=== PATIENT | female | born 1960 | race American Indian/Alaskan Native ===

== ENCOUNTER 2021-04-17 11:59 | Emergency (ER) | payer BC ==
--- NOTE | 2021-04-17 12:47 | Emergency Department Report ---
ED General Adult HPI - General Chief complaint: Medical Clearance Stated complaint: LOW POT/SODIUM Time Seen by Provider: 04/17/21 12:37 Source: patient Mode of arrival: Ambulatory Limitations: No Limitations - History of Present Illness Initial comments: 60-year-old female with a past medical history of hypertension presents to the hospital due to abnormal outpatient labs. Patient had routine labs drawn by her doctors office yesterday. She was sent due to sodium of 121 and potassium 3.0. Patient is asymptomatic and does not endorse any nausea, vomiting, or weakness. Patient's treating provider Syd Camilo nurse practitioner affiliated with [facility] Patient's current medications include amlodipine 5 mg Metoprolol 25 mg Rosuvastatin 20 mg Hydrochlorothiazide 12.5 mg benazepril 20 - Related Data Home Medications Medication Instructions Recorded Confirmed Last Taken Benazepril HCl [Lotensin] 20 mg PO QDAY 04/17/21 04/17/21 04/17/21 Metoprolol [Lopressor] 25 mg PO QDAY 04/17/21 04/17/21 04/17/21 Rosuvastatin Calcium 20 mg PO QDAY 04/17/21 04/17/21 04/17/21 amLODIPine [Norvasc] 5 mg PO DAILY 04/17/21 04/17/21 04/17/21 hydroCHLOROthiazide [Hctz] 12.5 mg PO QDAY 04/17/21 04/17/21 04/17/21 Previous Rx's Medication Instructions Recorded Last Taken Type Potassium Chloride [KCl 20 meq 20 meq PO QDAY 4 Days bottle 04/17/21 Unknown Rx ORAL LIQ] Allergies Allergy/AdvReac Type Severity Reaction Status Date / Time No Known Allergies Allergy Verified 04/17/21 14:48 ED Review of Systems ROS: Stated complaint: LOW POT/SODIUM Other details as noted in HPI Comment: All other systems reviewed and negative ED Past Medical Hx - Medications Home Medications: Home Medications Medication Instructions Recorded Confirmed Last Taken Type Benazepril HCl [Lotensin] 20 mg PO QDAY 04/17/21 04/17/21 04/17/21 History Metoprolol [Lopressor] 25 mg PO QDAY 04/17/21 04/17/21 04/17/21 History Potassium Chloride [KCl 20 meq 20 meq PO QDAY 4 Days bottle 04/17/21 Unknown R x ORAL LIQ] Rosuvastatin Calcium 20 mg PO QDAY 04/17/21 04/17/21 04/17/21 History amLODIPine [Norvasc] 5 mg PO DAILY 04/17/21 04/17/21 04/17/21 History hydroCHLOROthiazide [Hctz] 12.5 mg PO QDAY 04/17/21 04/17/21 04/17/21 History ED Physical Exam - General Limitations: No Limitations - Other Other exam information: General: No acute distress Head: Atraumatic Eyes: normal appearance ENT: Moist mucous membranes Neck: Normal appearance, no midline tenderness Chest: Clear to auscultation bilaterally CV: Regular rate and rhythm Abdomen: Soft, normal bowel sounds, nontender, nondistended, no rebound or guarding Back: Normal inspection Extremity: Normal inspection, full range of motion Neuro: Alert O x 3, no facial asymmetry, speech clear, no gross motor sensory deficit Psych: Appropriate behavior Skin: No rash ED Course Vital Signs 04/17/21 04/17/21 12:25 13:52 Temperature 98.2 F Pulse Rate 87 Respiratory 18 Rate Blood Pressure 125/72 [Right] O2 Sat by Pulse 97 100 Oximetry ED Medical Decision Making - Lab Data Result diagrams: 04/17/21 13:36 04/17/21 13:36 Lab Results 04/17/21 04/17/21 Range/Units 13:36 13:36 WBC 3.2 L (4.5-11.0) K/mm3 RBC 3.50 L (3.65-5.03) M/mm3 Hgb 11.4 (10.1-14.3) gm/dl Hct 33.2 (30.3-42.9) % MCV 95 (79-97) fl MCH 33 H (28-32) pg MCHC 34 (30-34) % RDW 12.9 L (13.2-15.2) % Plt Count 207 (140-440) K/mm3 Lymph % (Auto) 25.5 (13.4-35.0) % [place] % (Auto) 14.9 H (0.0-7.3) % Eos % (Auto) 0.6 (0.0-4.3) % Baso % (Auto) 1.4 (0.0-1.8) % Lymph # (Auto) 0.8 L (1.2-5.4) K/mm3 [place] # (Auto) 0.5 (0.0-0.8) K/mm3 Eos # (Auto) 0.0 (0.0-0.4) K/mm3 Baso # (Auto) 0.0 (0.0-0.1) K/mm3 Seg Neutrophils % 57.6 (40.0-70.0) % Seg Neutrophils # 1.8 (1.8-7.7) K/mm3 Sodium 131 L (137-145) mmol/L Potassium 3.0 L (3.6-5.0) mmol/L Chloride 82.9 L (98-107) mmol/L Carbon Dioxide 30 (22-30) mmol/L Anion Gap 21 mmol/L BUN 2 L (7-17) mg/dL Creatinine 0.5 L (0.6-1.2) mg/dL Estimated GFR > 60 ml/min BUN/Creatinine Ratio 4 % Glucose 100 (65-100) mg/dL Calcium 9.3 (8.4-10.2) mg/dL Magnesium 2.10 (1.7-2.3) mg/dL Total Bilirubin 0.20 (0.1-1.2) mg/dL AST 74 H (5-40) units/L ALT 32 (7-56) units/L Alkaline Phosphatase 105 (35-129) units/L Total Protein 7.1 (6.3-8.2) g/dL Albumin 4.6 (3.9-5) g/dL Albumin/Globulin Ratio 1.8 % - Medical Decision Making 60-year-old female presents to the hospital with asymptomatic electrolyte abnormalities. She had mild sodium potassium elevation during her outpatient work-up yesterday. Labs revealed mild low sodium, potassium, and chloride. Patient is on hydrochlorothiazide which is likely the cause of her electrolyte abnormalities. She was treated with 1 L normal saline and p.o. potassium. She will be advised to discontinue hydrochlorothiazide and follow-up with her primary care doctor NELDA for medication adjustment. Additional potassium will be prescribed. Critical Care Time: No Critical care attestation.: If time is entered above; I have spent that time in minutes in the direct care of this critically ill patient, excluding procedure time. ED Disposition Clinical Impression: Hyponatremia, Hypokalemia, Thiazide diuretic adverse reaction Disposition: 01 HOME / SELF CARE / HOMELESS Is pt being admited?: No Does the pt Need Aspirin: No Condition: Stable Instructions: Hypokalemia Additional Instructions: Your hydrochlorothiazide likely as a cause of your low sodium and potassium. You were provided 1 L of normal saline and one oral potassium tablet in the ER. Take the additional potassium medication as prescribed. Discontinue your hydrochlorothiazide medication at this time. Follow-up with your doctor for further blood pressure management Prescriptions: Potassium Chloride [KCl 20 meq ORAL LIQ] 20 meq PO QDAY 4 Days bottle Referrals: MATT PRABHAKAR MD [Primary Care Provider] - 3-5 Days Time of Disposition: 17:17
[2021-04-17] MEDS ORDERED: SODIUM CHLORIDE 0.9% 1000 ML 1,000 ML IV ONE (14:55)
[2021-04-17 15:06] LABS: Basophils % (Auto) 1.4 % (0.0-1.8); Eosinophils % (Auto) 0.6 % (0.0-4.3); Hematocrit 33.2 % (30.3-42.9); Hemoglobin 11.4 gm/dl (10.1-14.3); Lymphocytes # (Auto) 0.8 K/mm3 (1.2-5.4); Lymphocytes % (Auto) 25.5 % (13.4-35.0); Mean Corpuscular HGB Conc 34 % (30-34); Mean Corpuscular Volume 95 fl (79-97); Monocytes # (Auto) 0.5 K/mm3 (0.0-0.8); Monocytes % (Auto) 14.9 % (0.0-7.3); Platelet Count 207 K/mm3 (140-440); Red Cell Distribution Width 12.9 % (13.2-15.2)
[2021-04-17 15:22] LABS: Alanine Aminotransferase 32 units/L (7-56); Albumin 4.6 g/dL (3.9-5); Blood Urea Nitrogen 2 mg/dL (7-17); Calcium 9.3 mg/dL (8.4-10.2); Hemolysis Index 6
[2021-04-17 15:45] LABS: BUN/Creatinine Ratio 4
[2021-04-17] MEDS ORDERED: POTASSIUM CHLORIDE ER 20 MEQ TAB PO ONE (15:55)
[2021-04-17 17:41] VITALS: BP 139/69
== END 2021-04-17 17:41 | disposition home or self-care (01) ==
LOC: ED 11:59
DX: E87.1 Hypo-osmolality and hyponatremia (principal); T50.1X5A Adverse effect of loop [high-ceiling] diuretics, initial encounter; E87.6 Hypokalemia; Z79.899 Other long term (current) drug therapy; Y92.89 Other specified places as the place of occurrence of the external cause
CPT/HCPCS: 36415; 80053; 83735; 85025; 96360; 99283; J7030; Q0162